=== PATIENT | female | born 1995 | race Caucasian/White ===

== ENCOUNTER 2020-10-31 12:00 | Inpatient (IN) | payer OTHER ==
[~2020-10-31] VITALS: Ht 160 cm; Wt 3.2 kg
[2020-11-22] MEDS ORDERED: PRENATAL CAPLE1 EAC1 PO (09:38)
== END 2020-11-25 13:53 | disposition home or self-care (01) | DRG 788 ==
LOC: LDR 11-22 07:40 → OB/GYN 11-22 07:40 → O/R 11-22 17:34 → OB/GYN 11-22 19:55
PROVIDERS: ADMIT Obstetrics & Gynecology Maternal & Fetal Medicine; ATTEND Obstetrics & Gynecology Maternal & Fetal Medicine
PROC: 10D00Z1 Extraction of Products of Conception, Low, Open Approach (ICD-10-PCS; 2020-11-22)
PROC: 4A1HXFZ Monitoring of Products of Conception, Cardiac Rhythm, External Approach (ICD-10-PCS; principal; 2020-11-22 20:30)
DX: O62.1 Secondary uterine inertia (principal); O76 Abnormality in fetal heart rate and rhythm complicating labor and delivery; Z3A.40 40 weeks gestation of pregnancy; Z37.0 Single live birth; Z20.822 Contact with and (suspected) exposure to COVID-19

== ENCOUNTER 2020-11-20 12:44 | Outpatient (CLI) | payer OTHER | END 2020-11-20 13:42 | disposition home or self-care (01) | LOC: NST 12:44 | PROVIDERS: ATTEND Obstetrics & Gynecology Maternal & Fetal Medicine | DX: O47.1 False labor at or after 37 completed weeks of gestation (principal); Z3A.39 39 weeks gestation of pregnancy ==